=== PATIENT | male | born 1970 | race American Indian/Alaskan Native ===

== ENCOUNTER 2017-03-18 04:12 | Emergency (ER) | payer MEDICARE ==
[2017-03-18 04:43] VITALS: BP 148/88
--- NOTE | 2017-03-18 05:47 | Emergency Department Report ---
Chief Complaint: Medical Clearance Stated Complaint: MED R/F Time Seen by Provider: 03/18/17 05:32 - HPI History of Present Illness: 46-year-old male past medical history depression, hypertension presents with complaint of episode of chest pain earlier today which has since resolved. It lasted for 5 minutes substernal with some associated palpitations. Patient states that it happened approximately 2 hours ago while at rest. Patient is awake alert and oriented 3 denies any chest pain at this time. Patient is also requesting a refill on his lisinopril states that he ran out 2 days ago. Patient denies any other complaints, is calmly sitting in examination room. Patient is adamant that he does not have chest pain at this time and simply wishes to have a refill on his lisinopril. - ROS Review of Systems: History of depression and hypertension - Exam Vital Signs: Vital Signs 03/18/17 04:41 Temperature 98.3 F Pulse Rate 97 H Respiratory 18 Rate Blood Pressure 148/88 O2 Sat by Pulse 97 Oximetry Physical Exam: Heart S1-S2 lungs clear to auscultation patient awake alert and oriented 3 ambulatory strength 5 out of 5 all extremities. MSE screening note: Focused history and physical exam performed. Due to findings the following was ordered: Screening Assessment/Plan/Differential Dx: Chest pain, medication refill 1- This initial assessment/diagnostic orders/clinical plan/ treatment(s) is/are subject to change based on pt's health status, clinical progression and re- assessment by fellow clinical providers in the ED. Further treatment and workup at subsequent clinical provers discretion. Patient/guardians urged not to elope from ED as their condition may be serious if not clinically assessed and managed. 2-patient is refusing a cardiac workup does not wish to have EKG or blood work done at this time. When I asked patient to elaborate he states he simply wants a refill on his prescription and will follow up with his primary doctor this week. Patient was fully lucid conversant awake alert and oriented at this time and not clinically intoxicated. I had this discussion with paramedics Marisol at bedside. I advised patient that he could have acute coronary syndrome or underlying cardiovascular disease which may be deadly if not properly assessed. Patient stated that he understood the risks of leaving wish to leave anyway. Patient signed out AGAINST MEDICAL ADVICE. ED Disposition for MSE Clinical Impression: Chest pain at rest, Medication refill, Left against medical advice Disposition: [id number]-07 LEFT AGAINST MED ADVICE Condition: Undetermined Instructions: Chest Pain (ED), Against Medical Advice (ED) Prescriptions: Lisinopril [Zestril] 10 mg PO QDAY #30 Referrals: PRIMARY CARE, [Primary Care Provider] - 3-5 Days Forms: AMA Form
== END 2017-03-18 06:01 | disposition left against medical advice (07) ==
LOC: ED 04:12
DX: Z76.0 Encounter for issue of repeat prescription (principal); I10 Essential (primary) hypertension; F32.9 Major depressive disorder, single episode, unspecified; Z53.21 Procedure and treatment not carried out due to patient leaving prior to being seen by health care provider

== ENCOUNTER 2017-04-15 19:40 | Emergency (ER) | payer MEDICARE ==
--- NOTE | 2017-04-15 20:51 | Emergency Department Report ---
HPI - General Chief Complaint: Seizure Time Seen by Provider: 04/15/17 20:22 - HPI HPI: This is a 46-year-old -Citizen Of [place] male presents to the emergency department by EMS from [place] after the patient had some seizure-like activity and hit his head. This occurred shortly after the patient received some Haldol and Benadryl. He is being treated there for schizophrenia. There is otherwise no history of any seizures and any other previous medical conditions. The patient himself says he is unsure why he was sent in to be seen but is a poor historian. His family later shows a bedside and confirms that there is no seizure history or any previous medical conditions. ED Past Medical Hx - Past Medical History Previous Medical History?: Yes Hx Hypertension: Yes Hx Psychiatric Treatment: Yes (schizophrenia) - Social History Smoking Status: Never Smoker Substance Use Type: None - Medications Home Medications: Home Medications Medication Instructions Recorded Confirmed Last Taken Type Lisinopril [Zestril TAB] 1 tab PO QDAY #30 tablet 04/08/15 3 Days Ago Rx ~03/15/17 ARIPiprazole [Abilify TAB] 10 mg PO DAILY 03/18/17 03/18/17 1 Day Ago History ~03/17/17 Lisinopril [Zestril] 10 mg PO QDAY #30 03/18/17 Unknown Rx ED Review of Systems ROS: Stated complaint: SEIZURES Other details as noted in HPI Comment: Unobtainable due to pts medical conditions Physical Exam - Physical Exam Vital Signs: Vital Signs 04/15/17 19:56 Temperature 99 F Pulse Rate 88 Respiratory 18 Rate Blood Pressure 110/74 O2 Sat by Pulse 97 Oximetry Physical Exam: GENERAL: The patient is well-developed well-nourished. HENT: Normocephalic. Atraumatic. Patient has moist mucous membranes. EYES: Extraocular motions are intact. Pupils equal reactive to light bilaterally. No nystagmus. NECK: Supple. No meningitic signs are noted. There is no adenopathy noted. CHEST/LUNGS: Clear to auscultation. There is no respiratory distress noted. HEART/CARDIOVASCULAR: Regular. There is no tachycardia. There is no murmur. ABDOMEN: Abdomen is soft, nontender. Patient has normal bowel sounds. There is no abdominal distention. SKIN: Skin is warm and dry. NEURO: Patient is awake and alert. Oriented to person and place but not time. The patient is cooperative. The patient has no focal neurologic deficits. Patient has some delayed speech or delayed answers to questions but this may be secondary to being postictal. MUSCULOSKELETAL: There is no tenderness or deformity. There is no limitation range of motion. There is no evidence of acute injury. ED Course Vital Signs 04/15/17 19:56 Temperature 99 F Pulse Rate 88 Respiratory 18 Rate Blood Pressure 110/74 O2 Sat by Pulse 97 Oximetry ED Medical Decision Making - Lab Data Result diagrams: 04/15/17 20:47 04/15/17 20:47 - EKG Data -: EKG Interpreted by In EKG shows normal: sinus rhythm, axis, intervals, QRS complexes, ST-T waves Rate: normal - EKG Data When compared to previous EKG there are: no significant change Interpretation: normal EKG, unchanged when compared t (04/08/15) - Radiology Data Radiology results: report reviewed PROCEDURE: CT HEAD/BRAIN WO CON TECHNIQUE: Computerized tomography of the head was performed without contrast material. HISTORY: Seizure COMPARISON: No prior studies are available for comparison. FINDINGS: Skull and scalp: Normal. Paranasal sinuses: Normal. Ventricles and subarachnoid spaces: Normal. Cerebrum: No evidence of hemorrhage, acute infarction or mass . Cerebellum and brainstem: No evidence of hemorrhage, acute infarction or mass. Vasculature: Normal. Comments: None. IMPRESSION: Normal Examination Transcribed By: GLENN Dictated By: NOAH ADRIAN MD Electronically Authenticated By: NOAH ADRIAN MD Signed Date/Time: 04/15/17 9288 - Medical Decision Making CT of the head did not show any bleed, shift, mass or any acute process. EKG did not show any signs of ST elevation MS, ischemia or dysrhythmia. Labs and unremarkable and do not show any etiology of the patient's symptoms. The patient has been reevaluated multiple times for multiple hours and is greatly improved and there has been no further seizure-like activity. He is currently aaO [address] and time and appears more awake and less postictal. Family was bedside and says that he appears consistent with the condition he was out when he went to [place], prior to his seizure like activity. I do not know the etiology of the seizure like activity at this time but it is possible that it is related to either the Haldol or Benadryl as he received that just prior to the seizure occurring. For this reason I put in the discharge instructions and is recommended to avoid these medications at [facility] until further follow-up with a neurologist. It is also been encouraged for him to return to the emergency department immediately with any further seizure-like activity. Since the patient does not have a history of seizures and it was only one seizure that occurred, and since I do not want to add any further medication that could cause issues for him, he has not been started on any antiepileptic medication. Family is in agreement with the plan. He will be returned to [place]. - Differential Diagnosis epilepsy, pseudoseizures, medication induced seizure Critical Care Time: No Critical care attestation.: If time is entered above; I have spent that time in minutes in the direct care of this critically ill patient, excluding procedure time. ED Disposition Clinical Impression: Seizure-like activity Disposition: DC/TX-65 PSY HOSP/PSY UNIT Is pt being admited?: No Condition: Stable Instructions: New-Onset Seizure in Adults (ED) Additional Instructions: Please follow up with a neurologist as soon as you were able to do so and done with [facility] [place]. I have given you a referral for a local neurologist, Dr Perez. Please return to the emergency department with any further seizure-like activity or any acute distress. While I do not know what the etiology of the seizure-like activity was from, it occurred shortly after getting Haldol and Benadryl so I would urge you ( [place]) to consider avoiding these medications until the seizure-like activity can be further evaluated by a neurologist. Referrals: PRIMARY CARE, [Primary Care Provider] - GOVIND JEAN BAPTISTE MD [Staff Physician] - VAL Time of Disposition: 23:20
[2017-04-15 21:00] LABS: Urine Drugs of Abuse Note Disclamer
[2017-04-15 21:19] LABS: Basophils % (Auto) 0.5 % (0.0-1.8); Eosinophils % (Auto) 1.3 % (0.0-4.3); Hematocrit 44.8 % (35.5-45.6); Hemoglobin 15.3 gm/dl (11.8-15.2); Mean Corpuscular HGB Conc 34 % (32-34); Mean Corpuscular Hemoglobin 32 pg (28-32); Mean Corpuscular Volume 94 fl (84-94); Platelet Count 161 K/mm3 (140-440); Red Blood Count 4.78 M/mm3 (3.65-5.03); Red Cell Distribution Width 12.8 % (13.2-15.2); White Blood Count 8.9 K/mm3 (4.5-11.0)
[2017-04-15 21:21] LABS: Bilirubin,Urine NEG (Negative); Blood,Urine NEG (Negative); Ketones,Urine NEG (Negative); Leukocyte Esterase,Urine NEG (Negative); Mucus,Urine FEW /HPF; Nitrite,Urine NEG (Negative); Protein,Urine <15 mg/dL mg/dL (Negative)
[2017-04-15 21:27] LABS: Alanine Aminotransferase 35 units/L (7-56); Albumin/Globulin Ratio 1.4 %; Alkaline Phosphatase 54 units/L (35-129); Anion Gap 21 mmol/L; BUN/Creatinine Ratio 6; Blood Urea Nitrogen 6 mg/dL (9-20); Carbon Dioxide 24 mmol/L (22-30); Chloride 98.7 mmol/L (98-107); Glucose 83 mg/dL (75-100); Potassium 4.3 mmol/L (3.6-5.0); Sodium 139 mmol/L (137-145); Total Protein 6.9 g/dL (6.3-8.2)
--- NOTE | 2017-04-15 21:32 | Cat Scan Report ---
FINAL REPORT PROCEDURE: CT HEAD/BRAIN WO CON TECHNIQUE: Computerized tomography of the head was performed without contrast material. HISTORY: Seizure COMPARISON: No prior studies are available for comparison. FINDINGS: Skull and scalp: Normal. Paranasal sinuses: Normal. Ventricles and subarachnoid spaces: Normal. Cerebrum: No evidence of hemorrhage, acute infarction or mass . Cerebellum and brainstem: No evidence of hemorrhage, acute infarction or mass. Vasculature: Normal. Comments: None. IMPRESSION: Normal Examination
[2017-04-16 01:35] VITALS: BP 134/74
== END 2017-04-16 01:36 ==
LOC: ED 19:40
DX: R56.9 Unspecified convulsions (principal); I10 Essential (primary) hypertension
CPT/HCPCS: 36415; 70450; 80053; 80307; 81001; 84443; 85025; 93005; 93010; 99285; G0480; 80320

== ENCOUNTER 2020-07-02 11:56 | Emergency (ER) | payer MEDICARE ==
--- NOTE | 2020-07-02 12:12 | Event Note ---
ED Screening Note ED Screening Note: wound l foot and leg malodorous painful no antibiotics has appnt next week for wound care prior visit here for same per pt This initial assessment/diagnostic orders/clinical plan/treatment(s) is/are subject to change based on patients health status, clinical progression and re- assessment by fellow clinical providers in the ED. Further treatment and workup at subsequent clinical providers discretion. Patient/guardian urged not to elope from the ED as their condition may be serious if not clinically assessed and managed. Initial orders include: ro osteo- sepsis
--- NOTE | 2020-07-02 12:51 | XRay Report ---
LEFT TIBIA AND FIBULA 2 VIEWS INDICATION / CLINICAL INFORMATION: wound eval for osteo COMPARISON: None available. FINDINGS: BONES / JOINT(S): No acute fracture or subluxation. There is degenerative change in the knee joint wi th narrowing of the medial compartment with marginal osteophyte formation. There is no periosteal martha ction or erosions to suggest osteomyelitis. SOFT TISSUES: There is subcutaneous edema. ADDITIONAL FINDINGS: None. Signer Name: Anton Alford MD Signed: 07/02/2020 12:47 PM Workstation Name: [id number]
[2020-07-02 12:52] LABS: Bilirubin,Urine NEG (Negative); Blood,Urine NEG (Negative); Color,Urine Yellow (Yellow); Mucus,Urine FEW /HPF; Protein,Urine <15 mg/dL mg/dL (Negative)
--- NOTE | 2020-07-02 12:55 | XRay Report ---
LEFT FOOT 3 VIEWS INDICATION / CLINICAL INFORMATION: Large left foot wound, possible osteomyelitis. COMPARISON: None available. FINDINGS: BONES and JOINT(S): No acute fracture or subluxation. No suspicious cortical destruction. SOFT TISSUES: There is generalized edema, most notable along the forefoot dorsally. No distinct wound or other significant abnormality. ADDITIONAL FINDINGS: None. IMPRESSION: Left foot edema without a distinct wound or other radiographic evidence of osteomyelitis. Signer Name: Hasmukh Espino MD Signed: 07/02/2020 12:51 PM Workstation Name: [id number]
[2020-07-02 13:07] LABS: Basophils # (Auto) 0.1 K/mm3 (0.0-0.1); Eosinophils # (Auto) 0.4 K/mm3 (0.0-0.4); Eosinophils % (Auto) 4.9 % (0.0-4.3); Hematocrit 42.9 % (35.5-45.6); Hemoglobin 14.5 gm/dl (11.8-15.2); Lymphocytes # (Auto) 1.9 K/mm3 (1.2-5.4); Lymphocytes % (Auto) 24.8 % (13.4-35.0); Mean Corpuscular HGB Conc 34 % (32-34); Mean Corpuscular Volume 91 fl (84-94); Monocytes # (Auto) 0.8 K/mm3 (0.0-0.8); Monocytes % (Auto) 10.1 % (0.0-7.3); Platelet Count 190 K/mm3 (140-440); Red Blood Count 4.71 M/mm3 (3.65-5.03)
[2020-07-02 13:21] LABS: Alanine Aminotransferase 17 units/L (7-56); Albumin 3.9 g/dL (3.9-5); BUN/Creatinine Ratio 15; Blood Urea Nitrogen 16 mg/dL (9-20); Calcium 8.7 mg/dL (8.4-10.2); Hemolysis Index 0
--- NOTE | 2020-07-02 14:00 | Vascular Lab Report ---
DUPLEX DOPPLER LOWER EXTREMITY VEINS, LEFT INDICATION: leg swelling. TECHNIQUE: Duplex doppler imaging was performed through the veins of the left lower extremity using venous compr ession and other maneuvers. COMPARISON: No relevant prior imaging study available. FINDINGS: Left Common femoral vein: Negative. Left Superficial femoral vein: Negative. Left Popliteal vein: Negative. Left Calf veins: Negative. Additional findings: None.. IMPRESSION: 1. No sonographic evidence for DVT in the left lower extremity. Signer Name: Jad Mahmood MD Signed: 07/02/2020 1:55 PM Workstation Name: [id number]
[2020-07-02] MEDS ORDERED: SODIUM CHLORIDE 0.9% 1000 ML 1,000 ML IV ONE (14:33)
[2020-07-02] MEDS ORDERED: IPRATROPIUM 0.02% NEBU 2.5 ML IH ONE (14:34)
[2020-07-02] MEDS ORDERED: ALBUTEROL 2.5 MG/3 ML NEBU IH ONE (14:34)
[2020-07-02] MEDS ORDERED: VANCOMYCIN 2,000 MG in SODIUM CHLORIDE 0.9% 500 ML 500 ML IV ONE (15:00)
[2020-07-02 15:16] VITALS: BP 129/73
--- NOTE | 2020-07-02 15:29 | Emergency Department Report ---
ED Extremity Problem HPI - General Chief complaint: Extremity Problem,Nontraumatic Stated complaint: LT LEG/FOOT DISCOLORATION Time Seen by Provider: 07/02/20 12:08 Source: patient, old records reviewed (Patient here in December 2019 full left anterior leg wound) Mode of arrival: Ambulatory Limitations: No Limitations - History of Present Illness Initial comments: 50-year-old past medical history of hypertension, intermittent left leg ulcer, asthma, schizophrenia, morbid obesity, non-smoker presents to the hospital with complaints of new ulcer to the left second toe as well as dark discoloration presents for to 5 days. Patient also has a more chronic wound to the left anterior leg which was also present 1 month ago. The leg wound seemed to im prove with bacitracin but reoccurred and got worse when he discontinued topical antibiotic treatment. He has not followed up with a physician about these wounds and has not been recently treated with antibiotics. He does have his first wound care appointment scheduled for Sunday the . Patient states 6 to 8 months ago he was being seen at a wound care clinic off of [facility] regarding his left leg wound which healed until reoccurring 1 month ago. Patient complains of mild to moderate pain to left second toe worse with palpation and movement. Patient denies fever. Patient does present with wheezing secondary to asthma and feels like he needs a breathing treatment Severity scale (0 -10): 4 - Related Data Home Medications Medication Instructions Recorded Confirmed Last Taken ARIPiprazole [Abilify TAB] 10 mg PO DAILY 03/18/17 03/18/17 1 Day Ago ~03/17/17 Previous Rx's Medication Instructions Recorded Last Taken Type lisinopriL [Zestril TAB] 1 tab PO QDAY #30 tablet 04/08/15 3 Days Ago Rx ~03/15/17 Lisinopril [Zestril] 10 mg PO QDAY #30 03/18/17 Unknown Rx Bacitracin/Polymixin B [Polysporin] 1 applicatio TP BID #1 tube 07/02/20 Unknown Rx Sulfamethoxazole/Trimethoprim 1 each PO BID #20 tablet 07/02/20 Unknown Rx [Bactrim DS TAB] Allergies Allergy/AdvReac Type Severity Reaction Status Date / Time No Known Allergies Allergy Unverified 04/03/13 05:43 ED Review of Systems ROS: Stated complaint: LT LEG/FOOT DISCOLORATION Other details as noted in HPI ED Past Medical Hx - Past Medical History Previous Medical History?: Yes Hx Hypertension: Yes Hx Diabetes: Yes (Pt reports prediabetic) Hx Psychiatric Treatment: Yes (schizophrenia) Hx Asthma: Yes - Surgical History Past Surgical History?: No - Social History Smoking Status: Never Smoker Substance Use Type: None - Medications Home Medications: Home Medications Medication Instructions Recorded Confirmed Last Taken Type lisinopriL [Zestril TAB] 1 tab PO QDAY #30 tablet 04/08/15 3 Days Ago Rx ~03/15/17 ARIPiprazole [Abilify TAB] 10 mg PO DAILY 03/18/17 03/18/17 1 Day Ago History ~03/17/17 Lisinopril [Zestril] 10 mg PO QDAY #30 03/18/17 Unknown Rx Bacitracin/Polymixin B [Polysporin] 1 applicatio TP BID #1 tube 07/02/20 Unknown Rx Sulfamethoxazole/Trimethoprim 1 each PO BID #20 tablet 07/02/20 Unknown Rx [Bactrim DS TAB] ED Physical Exam - General Limitations: No Limitations - Other Other exam information: General: No acute distress Head: Atraumatic Eyes: normal appearance ENT: Moist mucous membranes Neck: Normal appearance, no midline tenderness Chest: Bilateral wheezing with mild tachypnea CV: Regular rate and rhythm Abdomen: Soft, normal bowel sounds, nontender, nondistended, no rebound or guarding Back: Normal inspection Extremity: See extremity exam, bilateral leg edema left greater than right, full range of motion of toes, ankle, and feet Neuro: Alert O x 3, no facial asymmetry, speech clear, no gross motor sensory deficit Psych: Appropriate behavior Skin: Left anterior medial tibia leg ulceration superficial without active drainage. Left second toe medial ulceration without active drainage. Unable to palpate left DP pulse. 2+ right DP pulse. Able to perform bedside ultrasound to left DP pulse with weak pulse wave compared to the right. Mild warmth without redness. Left lower leg findings consistent with venous stasis dermatitis ED Course Vital Signs 07/02/20 07/02/20 12:08 15:15 Temperature 98.9 F 978.4 F H Pulse Rate 96 H 76 Respiratory 16 17 Rate Blood Pressure 135/78 Blood Pressure 129/73 [Left] O2 Sat by Pulse 95 98 Oximetry - Reevaluation(s) Reevaluation #1: 07/02/20 16:44 Initially IV antibiotics and fluids were ordered however, patient had poor IV access. Labs do not reveal sepsis or septic shock and therefore patient could be treated orally with p.o. antibiotics. P.o. Bactrim given. Topical bacitracin wound dressing order, patient denied having significant pain ther efore initial tramadol order canceled ED Medical Decision Making - Lab Data Result diagrams: 07/02/20 12:36 07/02/20 12:36 Lab Results 07/02/20 07/02/20 07/02/20 Range/Units 12:36 12:36 12:36 WBC 7.6 (4.5-11.0) K/mm3 RBC 4.71 (3.65-5.03) M/mm3 Hgb 14.5 (11.8-15.2) gm/dl Hct 42.9 (35.5-45.6) % MCV 91 (84-94) fl MCH 31 (28-32) pg MCHC 34 (32-34) % RDW 14.0 (13.2-15.2) % Plt Count 190 (140-440) K/mm3 Lymph % (Auto) 24.8 (13.4-35.0) % [place] % (Auto) 10.1 H (0.0-7.3) % Eos % (Auto) 4.9 H (0.0-4.3) % Baso % (Auto) 1.0 (0.0-1.8) % Lymph # (Auto) 1.9 (1.2-5.4) K/mm3 [place] # (Auto) 0.8 (0.0-0.8) K/mm3 Eos # (Auto) 0.4 (0.0-0.4) K/mm3 Baso # (Auto) 0.1 (0.0-0.1) K/mm3 Seg Neutrophils % 59.2 (40.0-70.0) % Seg Neutrophils # 4.5 (1.8-7.7) K/mm3 Sodium 139 (137-145) mmol/L Potassium 3.8 (3.6-5.0) mmol/L Chloride 101.8 (98-107) mmol/L Carbon Dioxide 31 H (22-30) mmol/L Anion Gap 10 mmol/L BUN 16 (9-20) mg/dL Creatinine 1.1 (0.8-1.3) mg/dL Estimated GFR > 60 ml/min BUN/Creatinine Ratio 15 % Glucose 88 (75-100) mg/dL Lactic Acid (0.7-2.0) mmol/L Calcium 8.7 (8.4-10.2) mg/dL Total Bilirubin 0.60 (0.1-1.2) mg/dL AST 25 (5-40) units/L ALT 17 (7-56) units/L Alkaline Phosphatase 49 (35-129) units/L Total Creatine Kinase 1145 H (55-170) units/L Total Protein 7.9 (6.3-8.2) g/dL Albumin 3.9 (3.9-5) g/dL Albumin/Globulin Ratio 1.0 % Urine Color (Yellow) Urine Turbidity (Clear) Urine pH (5.0-7.0) Ur Specific [place] (1.003-1.030) Urine Protein (Negative) mg/dL Urine Glucose (UA) (Negative) mg/dL Urine Ketones (Negative) mg/dL Urine Blood (Negative) Urine Nitrite (Negative) Urine Bilirubin (Negative) Urine Urobilinogen (<2.0) mg/dL Ur Leukocyte Esterase (Negative) Urine WBC (Auto) (0.0-6.0) /HPF Urine RBC (Auto) (0.0-6.0) /HPF U Epithel Cells (Auto) (0-13.0) /HPF Urine Mucus /HPF 07/02/20 07/02/20 Range/Units Unknown Unknown WBC (4.5-11.0) K/mm3 RBC (3.65-5.03) M/mm3 Hgb (11.8-15.2) gm/dl Hct (35.5-45.6) % MCV (84-94) fl MCH (28-32) pg MCHC (32-34) % RDW (13.2-15.2) % Plt Count (140-440) K/mm3 Lymph % (Auto) (13.4-35.0) % [place] % (Auto) (0.0-7.3) % Eos % (Auto) (0.0-4.3) % Baso % (Auto) (0.0-1.8) % Lymph # (Auto) (1.2-5.4) K/mm3 [place] # (Auto) (0.0-0.8) K/mm3 Eos # (Auto) (0.0-0.4) K/mm3 Baso # (Auto) (0.0-0.1) K/mm3 Seg Neutrophils % (40.0-70.0) % Seg Neutrophils # (1.8-7.7) K/mm3 Sodium (137-145) mmol/L Potassium (3.6-5.0) mmol/L Chloride (98-107) mmol/L Carbon Dioxide (22-30) mmol/L Anion Gap mmol/L BUN (9-20) mg/dL Creatinine (0.8-1.3) mg/dL Estimated GFR ml/min BUN/Creatinine Ratio % Glucose (75-100) mg/dL Lactic Acid 1.20 (0.7-2.0) mmol/L Calcium (8.4-10.2) mg/dL Total Bilirubin (0.1-1.2) mg/dL AST (5-40) units/L ALT (7-56) units/L Alkaline Phosphatase (35-129) units/L Total Creatine Kinase (55-170) units/L Total Protein (6.3-8.2) g/dL Albumin (3.9-5) g/dL Albumin/Globulin Ratio % Urine Color Yellow (Yellow) Urine Turbidity Clear (Clear) Urine pH 5.0 (5.0-7.0) Ur Specific [place] 1.026 (1.003-1.030) Urine Protein <15 mg/dl (Negative) mg/dL Urine Glucose (UA) Neg (Negative) mg/dL Urine Ketones Neg (Negative) mg/dL Urine Blood Neg (Negative) Urine Nitrite Neg (Negative) Urine Bilirubin Neg (Negative) Urine Urobilinogen 2.0 (<2.0) mg/dL Ur Leukocyte Esterase Neg (Negative) Urine WBC (Auto) 1.0 (0.0-6.0) /HPF Urine RBC (Auto) 1.0 (0.0-6.0) /HPF U Epithel Cells (Auto) < 1.0 (0-13.0) /HPF Urine Mucus Few /HPF - Radiology Data Radiology results: report reviewed LEFT FOOT 3 VIEWS INDICATION / CLINICAL INFORMATION: Large left foot wound, possible osteomyelitis. COMPARISON: None available. FINDINGS: BONES and JOINT(S): No acute fracture or subluxation. No suspicious cortical destruction. SOFT TISSUES: There is generalized edema, most notable along the forefoot dorsally. No distinct wound or other significant abnormality. ADDITIONAL FINDINGS: None. IMPRESSION: Left foot edema without a distinct wound or other radiographic evidence of osteomyelitis. LEFT TIBIA AND FIBULA 2 VIEWS INDICATION / CLINICAL INFORMATION: wound eval for osteo COMPARISON: None available. FINDINGS: BONES / JOINT(S): No acute fracture or subluxation. There is degenerative change in the knee joint with narrowing of the medial compartment with marginal osteophyte formation. There is no periosteal reaction or erosions to suggest osteomyelitis. SOFT TISSUES: There is subcutaneous edema. ADDITIONAL FINDINGS: None. DUPLEX DOPPLER LOWER EXTREMITY VEINS, LEFT INDICATION: leg swelling. TECHNIQUE: Duplex doppler imaging was performed through the veins of the left lower extremity using venous compression and other maneuvers. COMPARISON: No relevant prior imaging study available. FINDINGS: Left Common femoral vein: Negative. Left Superficial femoral vein: Negative. Left Popliteal vein: Negative. Left Calf veins: Negative. Additional findings: None.. IMPRESSION: 1. No sonographic evidence for DVT in the left lower extremity. DUPLEX DOPPLER LOWER EXTREMITY ARTERIAL, LEFT INDICATION: leg ulcer, edema. TECHNIQUE: Arterial duplex examination of the left lower extremity performed using B-mode, color flow and spectral Doppler assessment. FINDINGS: LEFT: Common Femoral Artery: PSV 126 cm/sec. Triphasic waveform. Proximal SFA: PSV 119 cm/sec. Triphasic waveform. Mid SFA: PSV 101 cm/sec. Triphasic waveform. Distal SFA: PSV 103 cm/sec. Triphasic waveform. Popliteal artery: PSV 67 cm/sec. Triphasic waveform. Posterior tibial artery: PSV 116 cm/sec. Triphasic waveform. Dorsalis Pedis Artery: PSV 50 cm/sec. Triphasic waveform. IMPRESSION: 1. No significant left lower extremity peripheral artery disease. Doppler Waveform: * Triphasic is normal. * Biphasic is abnormal if clear transition from triphasic signal along vascular tree. * Monophasic is abnormal. - Medical Decision Making Patient presents to the hospital with worsening and chronic left anterior leg wound and new wound at the second left toe. No signs of sepsis or septic shock. No radiology findings of osteomyelitis. New wound to toe is only impressive for several days therefore making osteomyelitis unlikely. Patient provided Bactrim and topical antibiotic dressing in the ED and will be discharged with the same and to continue his follow-up in 3 days as scheduled. No Doppler evidence of arterial disease and no signs of DVT. Breathing improved with bronchodilators. Mild incr ck noted without signs of renal insuf Critical Care Time: No Critical care attestation.: If time is entered above; I have spent that time in minutes in the direct care of this critically ill patient, excluding procedure time. ED Disposition Clinical Impression: Venous ulcer of left leg, Toe ulcer, Asthma exacerbation, Venous stasis dermatitis of left lower extremity Disposition: - TO HOME OR SELFCARE Is pt being admited?: No Does the pt Need Aspirin: No Condition: Stable Instructions: Venous Ulcer, [id number], Asthma, Adult Additional Instructions: Take the medication as prescribed. Follow-up with your doctor or doctor/clinic provided. Return if symptoms worsen as indicated by your discharge instructions. Prescriptions: Sulfamethoxazole/Trimethoprim [Bactrim DS TAB] 1 each PO BID #20 tablet Bacitracin/Polymixin B [Polysporin] 1 applicatio TP BID #1 tube Referrals: PRIMARY CAREMD [Primary Care Provider] - 3-5 Days [facility] [Provider Group] - 3-5 Days CASEY HONEYCUTT MD [Staff Physician] - 3-5 Days wound care clinicMD [Other] - 07/05/20 (as scheduled) Time of Disposition: 17:24
--- NOTE | 2020-07-02 16:12 | Vascular Lab Report ---
DUPLEX DOPPLER LOWER EXTREMITY ARTERIAL, LEFT INDICATION: leg ulcer, edema. TECHNIQUE: Arterial duplex examination of the left lower extremity performed using B-mode, color flow and spectr al Doppler assessment. FINDINGS: LEFT: Common Femoral Artery: PSV 126 cm/sec. Triphasic waveform. Proximal SFA: PSV 119 cm/sec. Triphasic waveform. Mid SFA: PSV 101 cm/sec. Triphasic waveform. Distal SFA: PSV 103 cm/sec. Triphasic waveform. Popliteal artery: PSV 67 cm/sec. Triphasic waveform. Posterior tibial artery: PSV 116 cm/sec. Triphasic waveform. Dorsalis Pedis Artery: PSV 50 cm/sec. Triphasic waveform. IMPRESSION: 1. No significant left lower extremity peripheral artery disease. Doppler Waveform: * Triphasic is normal. * Biphasic is abnormal if clear transition from triphasic signal along vascular tree. * Monophasic is abnormal. Signer Name: Anton Alford MD Signed: 07/02/2020 4:07 PM Workstation Name: [id number]
[2020-07-02] MEDS ORDERED: SULFAMETHOXAZOLE/TRIMETHOPRIM 800/160MG DS TAB PO ONE (16:35)
[2020-07-02] MEDS ORDERED: traMADol 50 MG TAB PO ONE (16:35)
[2020-07-02] MEDS ORDERED: BACITRACIN/POLYMYXIN B OINT 28.35 GM TP NR (16:36)
== END 2020-07-02 19:04 | disposition home or self-care (01) ==
LOC: ED 11:56
DX: J45.901 Unspecified asthma with (acute) exacerbation (principal); I87.2 Venous insufficiency (chronic) (peripheral); L97.529 Non-pressure chronic ulcer of other part of left foot with unspecified severity; I10 Essential (primary) hypertension; E11.9 Type 2 diabetes mellitus without complications; F20.9 Schizophrenia, unspecified; Z79.899 Other long term (current) drug therapy
CPT/HCPCS: 36415; 73590; 73630; 80053; 81001; 82140; 82550; 85025; 87040; 93926; 93971; 94640; 99284; J3370; J7030; J7040; 94644

== ENCOUNTER 2020-07-05 09:37 | Outpatient (CLI) | payer MEDICARE ==
[2020-07-05] MEDS ORDERED: LIDOCAINE (4%) 40 MG/ML TOPICAL SOLN 50 ML BOTTLE TP ONE (10:03)
== END 2020-07-05 09:38 | disposition home or self-care (01) ==
LOC: WOUND 09:37
PROVIDERS: ATTEND Surgery
DX: I87.332 Chronic venous hypertension (idiopathic) with ulcer and inflammation of left lower extremity (principal); L97.822 Non-pressure chronic ulcer of other part of left lower leg with fat layer exposed; L84 Corns and callosities; J45.909 Unspecified asthma, uncomplicated; I10 Essential (primary) hypertension; F20.9 Schizophrenia, unspecified; F32.9 Major depressive disorder, single episode, unspecified
CPT/HCPCS: 99215; G0463

== ENCOUNTER 2020-07-26 14:07 | Outpatient (CLI) | payer MEDICARE ==
[2020-07-26] MEDS ORDERED: LIDOCAINE (4%) 40 MG/ML TOPICAL SOLN 50 ML BOTTLE TP SCH (14:30)
== END 2020-07-26 14:08 | disposition home or self-care (01) ==
LOC: WOUND 14:07
PROVIDERS: ATTEND Surgery
DX: I87.332 Chronic venous hypertension (idiopathic) with ulcer and inflammation of left lower extremity (principal); L97.828 Non-pressure chronic ulcer of other part of left lower leg with other specified severity; L84 Corns and callosities; J45.909 Unspecified asthma, uncomplicated; I10 Essential (primary) hypertension; F20.9 Schizophrenia, unspecified; F32.9 Major depressive disorder, single episode, unspecified
CPT/HCPCS: 99213; G0463